=== PATIENT | female | born 1995 | race American Indian/Alaskan Native ===

== ENCOUNTER 2018-10-30 05:15 | Inpatient (IN) | payer MEDICAID ==
--- NOTE | 2018-10-30 06:37 | Anesthesia Day of Surgery ---
Anesthesia Day of Surgery - Day of Surgery Patient Examined: Yes Patient H&P Reviewed: Yes Patient is NPO: Yes Beta Blockers: No Cardiac Clearance: No Pulmonary Clearance: No Stephen's Test: N/A
--- NOTE | 2018-10-30 06:37 | Anesthesia Consultation ---
Anesthesia Consult and Med Hx Date of service: 10/30/18 - Airway Anesthetic Teeth Evaluation: Good ROM Head & Neck: Adequate Mental/Hyoid Distance: Adequate Mallampati Class: Class II Intubation Access Assessment: Probably Good - Pulmonary Exam CTA: Yes - Cardiac Exam Cardiac Exam: RRR - Pre-Operative Health Status ASA Pre-Surgery Classification: ASA2 Proposed Anesthetic Plan: Spinal - Pulmonary Hx Smoking: No Hx Asthma: No Hx Respiratory Symptoms: No SOB: No COPD: No Home Oxygen Therapy: No Hx Pneumonia: No Hx Sleep Apnea: No - Cardiovascular System Hx Hypertension: No Hx Coronary Artery Disease: No Hx Heart Attack/AMI: No Hx Angina: No Hx Percutaneous Transluminal Coronary Angioplasty (PTCA): No Hx Cardia Arrhythmia: No Hx Pacemaker: No Hx Internal Defibrillator: No Hx Valvular Heart Disease: No Hx Heart Murmur: No Hx Peripheral Vascular Disease: No - Central Nervous System Hx Neuromuscular Disorder: No Hx Seizures: No CVA: No Hx Back Pain: No Hx Psychiatric Problems: No - Gastrointestinal Hx Ulcer: No Hx Gastroesophageal Reflux Disease: Yes - Endocrine Hx Renal Disease: No Hx End Stage Renal Disease: No Hx Cirrhosis: No Hx Liver Disease: No Hx Insulin Dependent Diabetes: No Hx Non-Insulin Dependent Diabetes: No Hx Thyroid Disease: No Hx Hypothyroidism: No Hx Hyperthyroidism: No - Hematic Hx Anemia: No Hx Sickle Cell Disease: No - Other Systems Hx Alcohol Use: No Hx Substance Use: No Hx Cancer: No Hx Obesity: No
[2018-10-30] MEDS ORDERED: ZOFRAN IV PRN ×2 (06:38→09:00)
[2018-10-30] MEDS ORDERED: DILAUDID IV PRN ×2 (06:38)
[2018-10-30] MEDS ORDERED: BENADRYL IV PRN (06:38)
[2018-10-30] MEDS ORDERED: PEPCID IV ONE ×2 (07:00→07:16)
[2018-10-30] MEDS ORDERED: SODIUM CHLORIDE FLUSH SYRINGE 10 ML IV PRN (07:00)
[2018-10-30] MEDS ORDERED: BICITRA PO ONE ×2 (07:00→07:16)
[2018-10-30] MEDS ORDERED: PITOCin/NS 20 UNIT/1000ML DRIP 20 UNITS/1,000 ML BAG IV SCH ×3 (07:00→09:00)
[2018-10-30] MEDS ORDERED: LACTATED RINGERS 1,000 ML IV SCH ×2 (07:00→08:00)
[2018-10-30] MEDS ORDERED: REGLAN IV ONE ×2 (07:00→07:16)
--- NOTE | 2018-10-30 07:11 | History and Physical Report ---
History of Present Illness Date of examination: 10/30/18 Date of admission: 10/30/18 05:15 Chief complaint: Here for delivery at term for unstable lie. History of present illness: Primigravida at term. Medications and Allergies Allergies Allergy/AdvReac Type Severity Reaction Status Date / Time No Known Allergies Allergy Verified 10/30/18 06:45 Home Medications Medication Instructions Recorded Confirmed Last Taken Type No Known Home Medications [No 10/30/18 10/30/18 Unknown History Reported Home Medications] Active Meds: Active Medications Citric Acid/Sodium Citrate (Bicitra) 30 ml PO ONCE ONE Stop: 10/30/18 07:01 Diphenhydramine HCl (Benadryl) 12.5 mg IV Q2H PRN PRN Reason: Itching Famotidine (Pepcid) 20 mg IV ONCE ONE Stop: 10/30/18 07:01 Hydromorphone HCl (Dilaudid) 0.5 mg IV Q5M PRN PRN Reason: Breakthrough Pain Stop: 10/30/18 23:59 Hydromorphone HCl (Dilaudid) 0.5 mg IV Q4H PRN PRN Reason: breakthrough pain > 7/10 Oxytocin/Sodium Chloride (Pitocin/Ns 20 Unit/1000ml Drip) 20 units in 1,000 mls @ 0 mls/hr IV TITR RICARDO Lactated Ringer's (Lactated Ringers) 1,000 mls @ 2,250 mls/hr IV PREOP RICARDO Stop: 10/31/18 07:27 Metoclopramide HCl (Reglan) 10 mg IV ONCE ONE Stop: 10/30/18 07:01 Ondansetron HCl (Zofran) 4 mg IV Q8H PRN PRN Reason: Nausea And Vomiting Sodium Chloride (Sodium Chloride Flush Syringe 10 Ml) 10 ml IV PRN PRN PRN Reason: LINE FLUSH Review of Systems All systems: negative - Vital Signs Vital signs: Vital Signs Pulse BP 88 121/79 10/30/18 06:10 10/30/18 06:10 Temp Pulse Resp BP Pulse Ox 88 121/79 10/30/18 06:10 10/30/18 06:10 - Physical Exam Breasts: Positive: deferred Cardiovascular: Regular rate Lungs: Positive: Clear to auscultation Abdomen: Positive: normal appearance, soft, distention Uterus: Positive: enlarged - Obstetrical FHR: auscultation normal Results All other labs normal. Assessment and Plan - Patient Problems (1) Term Current Visit: Yes Status: Acute (2) Unstable presentation, Current Visit: Yes Status: Acute Plan to address problem: For elective delivery.
[2018-10-30] MEDS ORDERED: DEXMEDETOMIDINE IV ONE (07:15)
[2018-10-30 07:19] LABS: Basophils % (Auto) 0.9 % (0.0-1.8); Eosinophils # (Auto) 0.2 K/mm3 (0.0-0.4); Eosinophils % (Auto) 4.5 % (0.0-4.3); Hematocrit 36.1 % (30.3-42.9); Hemoglobin 12.1 gm/dl (10.1-14.3); Lymphocytes # (Auto) 1.7 K/mm3 (1.2-5.4); Lymphocytes % (Auto) 36.2 % (13.4-35.0); Mean Corpuscular HGB Conc 34 % (30-34); Mean Corpuscular Hemoglobin 29 pg (28-32); Mean Corpuscular Volume 87 fl (79-97); Monocytes # (Auto) 0.4 K/mm3 (0.0-0.8); Platelet Count 155 K/mm3 (140-440); Red Blood Count 4.14 M/mm3 (3.65-5.03)
[2018-10-30] MEDS ORDERED: ANCEF/STERILE WATER 2 GM/20 ML IV ONE (07:50)
[2018-10-30] MEDS ORDERED: ZOFRAN ONE (07:58)
[2018-10-30] MEDS ORDERED: NEO SYNEPHRINE ONE (07:58)
[2018-10-30] MEDS ORDERED: ANCEF/STERILE WATER 2 GM/20 ML IV NR (08:00)
--- NOTE | 2018-10-30 08:51 | Post Anesthesia Evaluation ---
- Post Anesthesia Evaluation Patient Participated: Yes Airway Patent: Yes Stable Respiratory Function: Yes Nausea/Vomiting: No Temp > 96.8F: Yes Pain Manageable: Yes Adequeate Hydration: Yes Anesthesia Complications: No Block Receding Appropriately: Yes
[2018-10-30] MEDS ORDERED: TYLENOL PO PRN (09:00)
[2018-10-30] MEDS ORDERED: LANSINOH TP PRN (09:00)
[2018-10-30] MEDS ORDERED: TUCKS PAD TP PRN (09:00)
[2018-10-30] MEDS ORDERED: NARCAN 0.4 MG/1 ML IV PRN (09:00)
--- NOTE | 2018-10-30 09:18 | Operative Report ---
Operative Report Operative Report: Date of Surgery: 10/30/2018 Preop Diagnoses: Term , Unstable lie. Post op Dignoses: Same plus footling breech presentation. Procedure: Low segmant Transverse section. Surgeon: MD Farzaneh Drywall Stripper Helper: Get Cano CRNA Anesthesia: Spinal blockade. Complications: None EBL: 100cc. Findings: Live baby boy, 2wky1ps, Apgars 8/9 footling breech and entangled with loops of the umbilical cord. Both ovaries and tubes were grossly normal. The uterus had two 1x2cm anterior fundal subserosal fibroids but otherwise unremarkable. Procedure in detail: The patient was taken to the OR and given a spinal block. She had an indwelling edge's cather placed. She was put in the straight supine position with a slight left lateral tilt and prepped in the abdomen. The drapes were placed. A time out was done. With the go ahead from the floor runner the a Pfannenstiel incision was made. The fascia was divided transversely. The recti abdominis muscle straps were dissected off. The anterior parietal peritoneum was identified and divided. The laparotomy was manually widened by stretching. The bladder blade was placed allowing the utero-vescical peritoneal flap to be divided. The bladder was displaced caudally. A low transverse uterine incision was made. The uterine cavity was entered bluntly. The amniotic sac ruptured with clear fluid.The feet of the fetus wer identified and brought through the incision. Traction on the ankles delivered the baby the waistline. The hips were then used for traction to deliver the trunk up to the shoulder blades. The Lovset maneuver was used to deliver the arms. With the fetus held upside down at the ankles, fundal pressure delivered the head. The airways were were bulb suctioned beginning with the mouth. The umbilical cord was double clamped and divided. The baby was safely passed on to the pediatric team. The placenta was manually removed from the uterine cavity. The cavity was explored and was empty of any placental remnants. The uterine incision wa srepaired in two layers with adequate hemostasis. Blood and clots were cleared from the abdomen. The anterior parietal peritoneum was closed beforwe repairing the fascia. All sutures were #0 vicryl. The skin was closed with 4-0 vicryl subcuticularly. There were no complications. All sponge and instrument count were correct. The patient tolerated the procedure well and was safely transferred to the recovery room.
[2018-10-30] MEDS: TORADOL IV PRN ×2 (12:39→18:30)
[2018-10-30] MEDS: FEOSOL PO SCH (15:02)
[2018-10-30] MEDS: PRENATAL VITAMIN PO SCH (18:16)
[2018-10-30] MEDS: ANCEF/NS 1 GM/50 ML 1 GM/50 ML BAG IV SCH (18:30)
[2018-10-30] MEDS: PERCOCET 5/325 PO PRN (20:05)
[2018-10-30] MEDS: IBUPROFEN PO PRN (20:05)
[2018-10-30 21:40] LABS: Hematocrit 33.5 % (30.3-42.9); Hemoglobin 11.3 gm/dl (10.1-14.3)
[2018-10-31] MEDS: IBUPROFEN PO PRN ×4 (02:02→22:06)
[2018-10-31] MEDS: PERCOCET 5/325 PO PRN ×4 (02:02→22:06)
[2018-10-31] MEDS: ANCEF/NS 1 GM/50 ML 1 GM/50 ML BAG IV SCH (02:03)
[2018-10-31] MEDS: FEOSOL PO SCH (09:54)
[2018-10-31] MEDS: PRENATAL VITAMIN PO SCH (09:54)
--- NOTE | 2018-10-31 12:31 | Progress Note ---
Assessment and Plan A: /postop day 1 S/P LTCS. P: Encouraged ambulation. Continue current orders. Subjective - Subjective Date of service: 10/31/18 Principal diagnosis: /postop day 1 S/P LTCS Interval history: /postop day 1 S/P LTCS. Doing well. Reports small amount of lochia. Voiding without difficulty. Ambulating well. Tolerating a regular diet. Passing gas. Patient denies headache, cough, chest pain, SOB, leg pain, or heavy bleeding. Patient reports: appetite normal, voiding normally, pain well controlled, flatus, ambulating normally, no dizzy ambulation, no bowel movement, no nauseated : doing well Objective - Vital Signs Latest vital signs: Vital Signs Temp Pulse Resp BP BP Pulse Ox 10/31/18 08:40 98.2 F 87 20 115/73 10/31/18 05:05 98.0 F 59 L 20 102/62 97 10/31/18 00:46 98 F 76 18 112/68 10/30/18 20:53 97.9 F 63 20 111/65 97 10/30/18 18:30 20 10/30/18 16:15 98 F 69 20 117/70 10/30/18 15:00 18 10/30/18 14:30 20 10/30/18 13:09 20 10/30/18 12:39 20 Intake and Output 10/30/18 10/31/18 10/31/18 23:59 07:59 15:59 Intake Total 1740 360 240 Output Total 1600 400 Balance 140 -40 240 Intake: IV 1050 ANCEF/NS 1 GM/50 ML 1 gm 50 In 50 ml @ 100 mls/hr IV Q8H RICARDO Rx#:[id number] Lactated Ringers 1,000 ml 1000 @ 2250 mls/hr IV PREOP RICARDO Rx#:[id number] Oral 330 240 Intake, Free Water 360 360 Output: Urine 1600 400 Indwelling Catheter 1600 Void 400 Other: Total, Intake Amount 240 240 Total, Output Amount 1600 400 # Voids Void 0 - Exam Cardiovascular: Present: Regular rate, Normal S1, Normal S2, No murmurs Lungs: Present: Clear to auscultation Abdomen: Present: normal appearance, soft, normal bowel sounds. Absent: distention, tenderness, guarding, rigidity Uterus: Present: normal, firm, fundal height below umbilicus. Absent: bogginess, tenderness Extremities: Present: normal. Absent: tenderness, edema Incision: Present: normal, dry, intact, dressed
[2018-11-01] MEDS: IBUPROFEN PO PRN ×3 (04:12→17:35)
[2018-11-01] MEDS: PERCOCET 5/325 PO PRN ×4 (04:13→23:49)
[2018-11-01] MEDS: FEOSOL PO SCH (10:09)
[2018-11-01] MEDS: PRENATAL VITAMIN PO SCH (10:09)
--- NOTE | 2018-11-01 11:50 | Progress Note ---
Subjective - Subjective Date of service: 11/01/18 Principal diagnosis: /postop day 2 S/P LTCS Interval history: /postop day 2 S/P LTCS. Doing well. Reports small amount of lochia. Voiding without difficulty. Ambulating well. Tolerating a regular diet. Passing gas. Patient denies headache, cough, chest pain, SOB, dizziness, nausea or vomiting, leg pain, or heavy bleeding. Patient reports: appetite normal, voiding normally, pain well controlled, flatus, ambulating normally, no dizzy ambulation, no nauseated : doing well Objective - Vital Signs Latest vital signs: Vital Signs Temp Pulse Resp BP BP Pulse Ox 11/01/18 08:06 106/61 11/01/18 08:05 98.2 F 71 18 106/61 97 11/01/18 00:36 97.2 F L 70 20 112/79 99 10/31/18 17:00 97.9 F 73 20 112/73 Intake and Output 10/31/18 11/01/18 11/01/18 23:59 07:59 15:59 Intake Total 800 600 480 Balance 800 600 480 Intake: Oral 800 480 Intake, Free Water 600 Other: Total, Intake Amount 320 480 # Voids Void 1 - Exam Cardiovascular: Present: Regular rate, Normal S1, Normal S2, No murmurs Lungs: Present: Clear to auscultation Abdomen: Present: normal appearance, soft, normal bowel sounds. Absent: distention, tenderness, guarding, rigidity Uterus: Present: normal, firm, fundal height below umbilicus. Absent: bogginess, tenderness Extremities: Present: normal. Absent: tenderness, edema Incision: Present: normal, dry, intact
[2018-11-02] MEDS: IBUPROFEN PO PRN (05:30)
[2018-11-02] MEDS: PERCOCET 5/325 PO PRN (08:50)
--- NOTE | 2018-11-02 10:13 | Progress Note ---
Assessment and Plan - Patient Problems (1) S/P primary low transverse Current Visit: Yes Status: Acute Plan to address problem: POD 3 - stable Continue routine postop orders Ambulation encouraged, as tolerated Discharge to home today Follow-up at [facility] as needed or in 1 week for incision check Subjective - Subjective Date of service: 11/02/18 Principal diagnosis: POD #3; s/p Primary LTCS Interval history: see H&P, Operative Report and PP/SPARERIBS TRIMMER Progress Notes Patient reports: appetite normal, voiding normally, pain well controlled, flatus, ambulating normally, no dizzy ambulation, no bowel movement [place]: doing well, other (breast and bottle feeding) Objective - Vital Signs Latest vital signs: Vital Signs Temp Pulse Resp BP Pulse Ox 11/02/18 07:17 97.9 F 51 L 18 131/73 11/01/18 23:36 98 F 63 16 112/78 100 11/01/18 16:36 98.3 F 76 18 115/74 Intake and Output 11/01/18 11/02/18 11/02/18 23:59 07:59 15:59 Intake Total 480 480 Balance 480 480 Intake: Oral 480 480 Other: Total, Intake Amount 480 480 # Voids Indwelling Catheter 4 - Exam Cardiovascular: Present: Regular rate Lungs: Present: Clear to auscultation, Normal air movement Abdomen: Present: normal appearance, soft Vulva: both: normal Uterus: Present: normal, firm, fundal height below umbilicus Extremities: Present: normal Incision: Present: normal, dry, intact, other (steri strips in place) Comments: scant lochia
[2018-11-02] MEDS: FEOSOL PO SCH (10:16)
[2018-11-02] MEDS: PRENATAL VITAMIN PO SCH (10:16)
--- NOTE | 2018-11-02 10:16 | Discharge Summary ---
Providers - Providers Date of Admission: 10/30/18 05:15 Date of discharge: 11/02/18 Attending physician: JACKLYN GRAF MD Primary care physician: JACKLYN GRAF MD Hospitalization Reason for admission: active labor, IUP at term Delivery: Procedure: primary low transverse Episiotomy: none Laceration: none Incision: normal, dry, intact, other (steri strips in place) Other procedures: none complications: none Discharge diagnosis: IUP at term delivered [place] baby: male Hospital course: Uncomplicated Condition at discharge: Stable Disposition: DC-01 TO HOME OR SELFCARE - Discharge Diagnoses (1) S/P primary low transverse Status: Acute Plan - Discharge Medications Prescriptions: Ibuprofen [Motrin 800 MG tab] 800 mg PO Q6H PRN #30 tablet PRN Reason: Pain, Mild (1-3) HYDROcodone/APAP 5-325 [[place] 5/325] 1 - 2 each PO Q4HR PRN 7 Days #30 tablet PRN Reason: Pain - Provider Discharge Summary Activity: routine, no sex for 6 weeks, no heavy lifting 4 weeks, no strenuous exercise Diet: routine Instructions: routine Additional instructions: [] Smoking cessation referral if applicable(refer to patient education folder for contact #) [] Refer to [facility] Booklet Call your doctor immediately for: * Fever > 100.5 * Heavy vaginal bleeding ( >1 pad per hour) * Severe persistent headache * Shortness of breath * Reddened, hot, painful area to leg or breast * Drainage or odor from incision. * Keep incision clean and dry at all times and follow doctor's instructions regarding bathing/showering - Follow up plan Follow up: JACKLYN GRAF MD [Primary Care Provider] - 7 Days (Follow-up at [facility] as needed or in 1 week for incision check)
[2018-11-02 15:01] VITALS: BP 112/67
== END 2018-11-02 15:25 | disposition home or self-care (01) | DRG 766 ==
LOC: LD 05:15 → OB 12:03
PROVIDERS: ADMIT Obstetrics & Gynecology; ATTEND Obstetrics & Gynecology
PROC: 10D00Z1 Extraction of Products of Conception, Low, Open Approach (ICD-10-PCS; principal; 2018-10-30)
DX: O32.8XX0 Maternal care for other malpresentation of fetus, not applicable or unspecified (principal); Z37.0 Single live birth; O34.13 Maternal care for benign tumor of corpus uteri, third trimester; K21.9 Gastro-esophageal reflux disease without esophagitis; D25.2 Subserosal leiomyoma of uterus; O99.62 Diseases of the digestive system complicating childbirth; Z3A.39 39 weeks gestation of pregnancy
CPT/HCPCS: 36415; 85014; 85018; 85025; 86592; 86850; 86900; 86901; G0378; J0690; J1170; J1885; J2370; J2405; J2590; J2765; J3490; J7120